=== PATIENT | female | born 1935 | race Caucasian/White ===

== ENCOUNTER 2016-09-12 07:00 | Inpatient (IN) | payer OTHER ==
[~2016-09-12] VITALS: Ht 157.5 cm; Wt 65.8 kg
[~2016-09-12 07:00] MED LIST: AMLODIPINE BESY10 M1 PO; BENAZEPRIL; COL100 PO; ECO81 PO; GOOD SENSE ASPI81 M3; INSULIN SC; LAC30L PO; LANTUS SOLOS100 U/M1; LOPRESSOR50 MG PO; MOTRIN800 MG PO; MYL80 CH; NOR10 PO; NORCO1 TA2 PO; PROMETHAZI6.25 MG/3 PO; SIMVASTATIN10 M1 PO; TES100 PO
[2016-09-12 07:57] LABS: CALCIUM 9.4 mg/dL (8.5-10.1); CARBON DIOXIDE 33.2 mmol/L (21-32); CHLORIDE SERUM 95 mmol/L (98-107); CREATININE SERUM 0.9 mg/dL (0.6-1.0); GLUCOSE SERUM 213 mg/dL (74-106); SODIUM SERUM 135 mmol/L (136-145)
[2016-09-12 08:02] LABS: ALBUMIN 4.3 g/dL (3.4-5.0); ALKALINE PHOSPHATASE 160 U/L (46-116); ALT/SGPT 26 U/L (14-59); AST/SGOT 16 U/L (15-37); BILIRUBIN TOTAL 0.3 mg/dL (0.20-1.00); TOTAL PROTEIN, SERUM 9.5 g/dL (6.4-8.2)
[2016-09-12 08:13] LABS: BASOPHIL % 0.3 % (0-2); PLATELET COUNT 233 x10^3mcL (130-400); RED CELL DISTRIBUTION WIDTH 12.4 % (11.5-14.5)
[2016-09-12 10:07] LABS: PHOSPHOROUS 3.5 mg/dL (2.5-4.9)
[2016-09-12 10:11] LABS: CHOLESTEROL/HDL RATIO 4.8
[2016-09-12 10:14] LABS: T3 TOTAL 0.97 ng/mL
[2016-09-12 10:17] LABS: FREE T4 1.04 ng/dL (0.76-1.46); FREE THYROXINE INDEX 2.6 ug/dL (1.4-4.5); T4(THYROXINE) 7.5 ug/dL (4.7-13.3)
[2016-09-12 12:14] VITALS: BP 155/74
[2016-09-12 13:13] VITALS: BP 121/57
[2016-09-12 14:16] VITALS: BP 121/57
[2016-09-12 16:57] VITALS: BP 121/50
[2016-09-12 18:04] LABS: microscopic required? NO
[2016-09-12 18:16] LABS: UA SPECIFIC GRAVITY 1.015 (1.005-1.035); urine erythrocyte NEGATIVE (NEGATIVE)
[2016-09-12 19:58] VITALS: BP 138/63
[2016-09-12 21:49] VITALS: BP 148/53
[2016-09-13 05:42] VITALS: BP 143/67
[2016-09-13 06:12] LABS: BASOPHIL % 0.4 % (0-2); PLATELET COUNT 202 x10^3mcL (130-400); RED CELL DISTRIBUTION WIDTH 12.3 % (11.5-14.5)
[2016-09-13 06:27] LABS: CALCIUM 8.4 mg/dL (8.5-10.1); CARBON DIOXIDE 26.8 mmol/L (21-32); CHLORIDE SERUM 101 mmol/L (98-107); CREATININE SERUM 0.8 mg/dL (0.6-1.0); GLUCOSE SERUM 182 mg/dL (74-106); POTASSIUM SERUM 4.1 mmol/L (3.5-5.1); SODIUM SERUM 138 mmol/L (136-145)
[2016-09-13 07:45] VITALS: BP 125/58
[2016-09-13 09:35] VITALS: BP 137/53
[2016-09-13 14:15] VITALS: BP 123/49
[2016-09-13 17:35] VITALS: BP 155/67
[2016-09-13 20:13] VITALS: BP 143/65
[2016-09-14 06:02] VITALS: BP 137/58
[2016-09-14] MEDS ORDERED: LEVOFLOXACIN750 M1 PO (09:27)
[2016-09-14] MEDS ORDERED: LAC PO (09:28)
[2016-09-14] MEDS ORDERED: MEDDP PO (09:29)
[2016-09-14 10:00] VITALS: BP 129/61
[2016-09-14] MEDS ORDERED: LOPRESSOR50 M1 PO (11:27)
[2016-09-14] MEDS ORDERED: NOR10 PO (12:44)
[2016-09-14 12:45] VITALS: BP 129/61
== END 2016-09-14 13:20 | disposition home or self-care (01) | DRG 191 ==
LOC: ED 07:00 → DU 09:20
PROVIDERS: Emergency Medicine; Family Medicine; ADMIT Family Medicine
DX: J44.1 Chronic obstructive pulmonary disease with (acute) exacerbation (principal); I42.9 Cardiomyopathy, unspecified; D68.69 Other thrombophilia; I44.4 Left anterior fascicular block; I10 Essential (primary) hypertension; I27.2 Other secondary pulmonary hypertension; I08.3 Combined rheumatic disorders of mitral, aortic and tricuspid valves; E11.59 Type 2 diabetes mellitus with other circulatory complications; E11.51 Type 2 diabetes mellitus with diabetic peripheral angiopathy without gangrene; E11.65 Type 2 diabetes mellitus with hyperglycemia; E78.5 Hyperlipidemia, unspecified; Z68.26 Body mass index [BMI] 26.0-26.9, adult; Z87.11 Personal history of peptic ulcer disease; Z79.82 Long term (current) use of aspirin; Z79.891 Long term (current) use of opiate analgesic; Z79.4 Long term (current) use of insulin
CPT/HCPCS: 82962; 83880; 84439; J1815; J1956; J3490; J7030; J7613; J7620; J7644; Q0092

== ENCOUNTER 2017-01-26 15:36 | Inpatient (IN) | payer OTHER ==
[~2017-01-26] VITALS: Ht 157.5 cm; Wt 61.2 kg
[~2017-01-26 15:36] MED LIST changes: +LAC PO; +LEVOFLOXACIN750 M1 PO; +LOPRESSOR50 M1 PO; +MEDDP PO
[2017-01-26 16:25] LABS: BASOPHIL % 0.2 % (0-2); PLATELET COUNT 234 x10^3mcL (130-400)
[2017-01-26 16:34] LABS: ALBUMIN 3.2 g/dL (3.4-5.0); ALKALINE PHOSPHATASE 96 U/L (46-116); ALT/SGPT 18 U/L (14-59); AST/SGOT 11 U/L (15-37); BILIRUBIN TOTAL 0.2 mg/dL (0.20-1.00); CALCIUM 8.1 mg/dL (8.5-10.1); CARBON DIOXIDE 31.8 mmol/L (21-32); CHLORIDE SERUM 96 mmol/L (98-107); CREATININE SERUM 1.1 mg/dL (0.6-1.0); GLUCOSE SERUM 325 mg/dL (74-106); LIPASE 230 IU/L (73-393); POTASSIUM SERUM 4.4 mmol/L (3.5-5.1); SODIUM SERUM 132 mmol/L (136-145); TOTAL PROTEIN, SERUM 6.7 g/dL (6.4-8.2)
[2017-01-26] MEDS ORDERED: NOVI SQ (16:48)
[2017-01-26] MEDS ORDERED: LANTUS SOLOS100 U/M1 SQ (16:48)
[2017-01-26] MEDS ORDERED: AMLODIPINE BESY10 M2 PO (16:50)
[2017-01-26] MEDS ORDERED: LOPRESSOR50 M1 PO (16:51)
[2017-01-26] MEDS ORDERED: ZOCOR20 MG PO (16:51)
[2017-01-26 17:54] VITALS: BP 128/48
[2017-01-26 18:10] LABS: T3 TOTAL 0.68 ng/mL
[2017-01-26 18:11] LABS: MAGNESIUM 2.1 mg/dL (1.8-2.4); PHOSPHOROUS 3.2 mg/dL (2.5-4.9)
[2017-01-26 18:12] LABS: CHOLESTEROL/HDL RATIO 7.5
[2017-01-26 18:13] LABS: FREE T4 0.78 ng/dL (0.76-1.46); T4(THYROXINE) 5.3 ug/dL (4.7-13.3)
[2017-01-26 21:14] VITALS: BP 118/53
[2017-01-27 06:21] VITALS: BP 99/40
[2017-01-27 07:27] LABS: CALCIUM 7.9 mg/dL (8.5-10.1); CARBON DIOXIDE 28.6 mmol/L (21-32); CHLORIDE SERUM 104 mmol/L (98-107); CREATININE SERUM 0.8 mg/dL (0.6-1.0); GLUCOSE SERUM 211 mg/dL (74-106); MAGNESIUM 1.8 mg/dL (1.8-2.4); PHOSPHOROUS 3.1 mg/dL (2.5-4.9); SODIUM SERUM 136 mmol/L (136-145)
[2017-01-27 07:29] LABS: BASOPHIL % 0.2 % (0-2); PLATELET COUNT 185 x10^3mcL (130-400); RED CELL DISTRIBUTION WIDTH 14.2 % (11.5-14.5)
[2017-01-27 07:33] LABS: rbc morphology (normal/abnorm) ABNORMAL (NORMAL)
[2017-01-27 08:08] LABS: AMPHETAMINE QUAL UR NONE DETECTED (NEG <=1000)
[2017-01-27 08:13] LABS: microscopic required? YES; urine erythrocyte NEGATIVE (NEGATIVE)
[2017-01-27 09:06] VITALS: BP 99/47
[2017-01-27 10:10] VITALS: BP 116/44
[2017-01-27 18:20] VITALS: BP 123/52
[2017-01-27 20:44] VITALS: BP 133/54
[2017-01-28 05:23] VITALS: BP 103/32
[2017-01-28 07:17] LABS: CARBON DIOXIDE 30.3 mmol/L (21-32); CHLORIDE SERUM 105 mmol/L (98-107); CREATININE SERUM 0.7 mg/dL (0.6-1.0); GLUCOSE SERUM 144 mg/dL (74-106); POTASSIUM SERUM 3.8 mmol/L (3.5-5.1); SODIUM SERUM 139 mmol/L (136-145)
[2017-01-28 07:31] LABS: BASOPHIL % 0.2 % (0-2); PLATELET COUNT 161 x10^3mcL (130-400)
[2017-01-28 07:32] LABS: RED CELL DISTRIBUTION WIDTH 14.8 % (11.5-14.5)
[2017-01-28 07:35] LABS: rbc morphology (normal/abnorm) ABNORMAL (NORMAL)
[2017-01-28 09:22] VITALS: BP 134/42
[2017-01-28 13:34] VITALS: BP 119/43
[2017-01-28 17:38] VITALS: BP 143/57
[2017-01-28 20:56] VITALS: BP 130/45
[2017-01-29 05:12] VITALS: BP 110/55
[2017-01-29 08:44] VITALS: BP 133/56; BP 89/51
[2017-01-29 09:16] LABS: CALCIUM 8.5 mg/dL (8.5-10.1); CHLORIDE SERUM 99 mmol/L (98-107); CREATININE SERUM 0.9 mg/dL (0.6-1.0); GLUCOSE SERUM 230 mg/dL (74-106); POTASSIUM SERUM 3.8 mmol/L (3.5-5.1); SODIUM SERUM 135 mmol/L (136-145)
[2017-01-29 09:35] LABS: BASOPHIL % 0.3 % (0-2); PLATELET COUNT 179 x10^3mcL (130-400); RED CELL DISTRIBUTION WIDTH 14.1 % (11.5-14.5)
[2017-01-29 11:51] VITALS: BP 100/39
[2017-01-29] MEDS ORDERED: OMEPRAZOLE40 M1 PO (13:11)
[2017-01-29] MEDS ORDERED: CARAFATE1 GM PO (13:11)
[2017-01-29 13:27] VITALS: BP 100/39
[2017-01-29] MEDS ORDERED: FLA500 PO (14:04)
[2017-01-29] MEDS ORDERED: DOXYCYCLINE MO100 MG PO (14:04)
[2017-01-29] MEDS ORDERED: LEVOFLOXACIN500 M1 PO (14:04)
[2017-01-29] MEDS ORDERED: PEPTO-BISMOL262 M1 PO (14:04)
[2017-01-29] MEDS ORDERED: PROTONIX40 MG PO (14:04)
[2017-01-29] MEDS ORDERED: DULCOLAX5 M1 PO (14:19)
== END 2017-01-29 14:59 | disposition home or self-care (01) | DRG 377 ==
LOC: ED 15:36 → DU 16:50 → MU 19:29 → DU 19:29 → MU 01-28 15:03
PROVIDERS: Emergency Medicine; Family Medicine; Internal Medicine; ADMIT Family Medicine
PROC: 0W3P8ZZ Control Bleeding in Gastrointestinal Tract, Via Natural or Artificial Opening Endoscopic (ICD-10-PCS; principal; 2017-01-27 08:45)
PROC: 0DB68ZX Excision of Stomach, Via Natural or Artificial Opening Endoscopic, Diagnostic (ICD-10-PCS; 2017-01-27 08:45)
DX: K25.0 Acute gastric ulcer with hemorrhage (principal); N17.0 Acute kidney failure with tubular necrosis; D62 Acute posthemorrhagic anemia; N39.0 Urinary tract infection, site not specified; E87.1 Hypo-osmolality and hyponatremia; E44.0 Moderate protein-calorie malnutrition; D68.69 Other thrombophilia; E11.59 Type 2 diabetes mellitus with other circulatory complications; E11.65 Type 2 diabetes mellitus with hyperglycemia; I10 Essential (primary) hypertension; E78.5 Hyperlipidemia, unspecified; Z79.82 Long term (current) use of aspirin; Z79.4 Long term (current) use of insulin; Z68.24 Body mass index [BMI] 24.0-24.9, adult
CPT/HCPCS: 43235; 82962; 83880; 84439; C9113; G0378; J1200; J1610; J1956; J2250; J2310; J2405; J2916; J3010; J3490; J7030; J7040; P9016; Q0092; Q0163

== ENCOUNTER 2018-06-21 11:17 | Emergency (ER) | payer OTHER ==
[~2018-06-21] VITALS: Ht 154.9 cm; Wt 60.8 kg
[~2018-06-21 11:17] MED LIST changes: +AMLODIPINE BESY10 M2 PO; +CARAFATE1 GM PO; +DOXYCYCLINE MO100 MG PO; +DULCOLAX5 M1 PO; +FLA500 PO; +LANTUS SOLOS100 U/M1 SQ; +LEVOFLOXACIN500 M1 PO; +NOVI SQ; +OMEPRAZOLE40 M1 PO; +PEPTO-BISMOL262 M1 PO; +PROTONIX40 MG PO; +ZOCOR20 MG PO
[2018-06-21 11:29] VITALS: Ht 154.9 cm; Wt 60.8 kg
[2018-06-21 14:45] LABS: BASOPHIL % 0.6 % (0-2); PLATELET COUNT 265 x10^3mcL (130-400); RED CELL DISTRIBUTION WIDTH 12.8 % (11.5-14.5)
[2018-06-21 14:51] LABS: CALCIUM 9.4 mg/dL (8.5-10.1); CARBON DIOXIDE 35.4 mmol/L (21-32); CHLORIDE SERUM 96 mmol/L (98-107); CREATININE SERUM 0.7 mg/dL (0.6-1.0); GLUCOSE SERUM 142 mg/dL (74-106); POTASSIUM SERUM 4.2 mmol/L (3.5-5.1); SODIUM SERUM 133 mmol/L (136-145)
[2018-06-21 14:56] LABS: ALKALINE PHOSPHATASE 140 U/L (46-116); ALT/SGPT 24 U/L (14-59); AST/SGOT 19 U/L (15-37); BILIRUBIN TOTAL 0.33 mg/dL (0.20-1.00)
[2018-06-21 14:58] LABS: TOTAL PROTEIN, SERUM 8.7 g/dL (6.4-8.2)
[2018-06-21 16:02] VITALS: BP 182/82
== END 2018-06-21 16:13 | disposition short-term general hospital (02) ==
LOC: ED 11:17
PROVIDERS: Emergency Medicine
DX: S06.5X0A Traumatic subdural hemorrhage without loss of consciousness, initial encounter (principal); I10 Essential (primary) hypertension; E11.9 Type 2 diabetes mellitus without complications; F41.9 Anxiety disorder, unspecified; Z88.0 Allergy status to penicillin; W01.0XXA Fall on same level from slipping, tripping and stumbling without subsequent striking against object, initial encounter; Y93.89 Activity, other specified; Y92.89 Other specified places as the place of occurrence of the external cause; Y99.8 Other external cause status
CPT/HCPCS: 36415

== ENCOUNTER 2019-01-03 14:02 | Emergency (ER) | payer OTHER ==
[~2019-01-03] VITALS: Ht 154.9 cm; Wt 67.6 kg
[2019-01-03 14:20] VITALS: Ht 154.9 cm; Wt 67.6 kg
[2019-01-03 14:49] LABS: BASOPHIL % 0.3 % (0-2); PLATELET COUNT 254 x10^3mcL (130-400); RED CELL DISTRIBUTION WIDTH 12.6 % (11.5-14.5)
[2019-01-03 15:01] LABS: CALCIUM 7.8 mg/dL (8.5-10.1); CARBON DIOXIDE 31.1 mmol/L (21-32); CHLORIDE SERUM 93 mmol/L (98-107); CREATININE SERUM 0.9 mg/dL (0.6-1.0); GLUCOSE SERUM 166 mg/dL (74-106); POTASSIUM SERUM 4.6 mmol/L (3.5-5.1); SODIUM SERUM 128 mmol/L (136-145)
[2019-01-03 15:47] VITALS: BP 147/40
== END 2019-01-03 15:47 | disposition home or self-care (01) ==
LOC: ED 14:02
PROVIDERS: Student in an Organized Health Care Education/Training Program
DX: M25.512 Pain in left shoulder (principal); R07.89 Other chest pain; I10 Essential (primary) hypertension; E11.9 Type 2 diabetes mellitus without complications; F41.9 Anxiety disorder, unspecified; Z88.0 Allergy status to penicillin
CPT/HCPCS: 36415

== ENCOUNTER 2019-04-06 15:56 | Emergency (ER) | payer OTHER ==
[~2019-04-06] VITALS: Ht 154.9 cm; Wt 63.5 kg
[2019-04-06 16:07] VITALS: Ht 154.9 cm; Wt 63.5 kg
[2019-04-06 17:09] LABS: BASOPHIL % 0.5 % (0-2); PLATELET COUNT 294 x10^3mcL (130-400)
[2019-04-06 17:18] LABS: CALCIUM 9.1 mg/dL (8.5-10.1); CARBON DIOXIDE 32.1 mmol/L (21-32); CHLORIDE SERUM 96 mmol/L (98-107); CREATININE SERUM 0.8 mg/dL (0.6-1.0); GLUCOSE SERUM 172 mg/dL (74-106); POTASSIUM SERUM 3.7 mmol/L (3.5-5.1); SODIUM SERUM 133 mmol/L (136-145)
[2019-04-06 17:23] LABS: ALKALINE PHOSPHATASE 119 U/L (46-116); ALT/SGPT 26 U/L (14-59); AST/SGOT 15 U/L (15-37); BILIRUBIN TOTAL 0.2 mg/dL (0.20-1.00); LIPASE 167 IU/L (73-393); TOTAL PROTEIN, SERUM 8.5 g/dL (6.4-8.2)
[2019-04-06 18:51] VITALS: BP 147/58
== END 2019-04-06 18:51 | disposition home or self-care (01) ==
LOC: ED 15:56
PROVIDERS: Emergency Medicine
DX: S20.212A Contusion of left front wall of thorax, initial encounter (principal); I10 Essential (primary) hypertension; E11.9 Type 2 diabetes mellitus without complications; E78.5 Hyperlipidemia, unspecified; Z88.0 Allergy status to penicillin; W01.0XXA Fall on same level from slipping, tripping and stumbling without subsequent striking against object, initial encounter; Y93.89 Activity, other specified; Y92.89 Other specified places as the place of occurrence of the external cause; Y99.8 Other external cause status
CPT/HCPCS: 36415